=== PATIENT | female | born 1980 | race Caucasian/White ===

== ENCOUNTER 2017-07-11 05:47 | Inpatient (IN) ==
[2017-07-11] MEDS ORDERED: SODIUM CHLORIDE 0.9% 1,000 ML IV PRN ×2 (06:26→12:27)
[2017-07-11 07:46] LABS: % Iron Saturation 9.9 % (18-50); Osmolality,Calculated 280.3 MOS/KG (273-304); Potassium 3.2 MMOL/L (3.5-5.1)
[2017-07-11 07:49] LABS: Basophils % 0.7 % (0.0-0.8); Hematocrit 22.2 VOL% (35.7-47.0); Immature Granulocytes % 0.7 %; Immature Granulocytes Absolute 0.03 #; Lymphocytes # 0.7 10*3/uL (1.4-4.0); Lymphocytes % 16.8 % (21.3-54.2); Mean Corpuscular HGB Conc 25.2 GM/DL (32-36); Mean Corpuscular Hemoglobin 17 PG (27-34); Mean Corpuscular Volume 68.1 FL (87-102); Mean Platelet Volume 10.8 FL (9.6-12.0); Monocytes # 0.5 10*3/uL (0.11-0.8); Monocytes % 11.8 % (1.7-12.7); NRBC # 0.03 10*3/uL; Platelet Count 284 T/CUMM (130-400); Red Blood Count 3.26 MC/CUMM (3.8-5.5); Red Cell Distribution Width 23.8 % (9.3-17.3); White Blood Count 4.2 T/CUMM (4-12)
[2017-07-11 07:53] LABS: Hemoglobin 5.6 GM/DL (12.0-16.0)
[2017-07-11 08:02] LABS: Elliptocytes Few; Giant Platelets Few; Hypochromasia 1+; Microcytosis Slight; Platelet Estimate Adequate
[2017-07-11] MEDS ORDERED: LORazepam 1 MG TABLET PO PRN (12:29)
[2017-07-11] MEDS ORDERED: PARoxetine 20 MG TABLET PO SCH (21:00)
[2017-07-11] MEDS: DILTIAZEM CD 240 MG CAPSULE PO SCH (21:12)
[2017-07-11] MEDS: FLECAINIDE 50 MG TABLET PO SCH (21:12)
[2017-07-11] MEDS: MAGNESIUM CHLORIDE 64 MG TABLET PO SCH (21:12)
[2017-07-12 03:07] LABS: Basophils # 0.1 10*3/uL (0.0-0.2); Basophils % 1.1 % (0.0-0.8); Hematocrit 29.1 VOL% (35.7-47.0); Immature Granulocytes % 0.9 %; Immature Granulocytes Absolute 0.04 #; Mean Corpuscular HGB Conc 26.8 GM/DL (32-36); Red Cell Distribution Width 23.5 % (9.3-17.3)
[2017-07-12 03:29] LABS: Lymphocytes % 22.8 % (21.3-54.2); Mean Corpuscular Hemoglobin 20 PG (27-34); Mean Corpuscular Volume 72.9 FL (87-102); Mean Platelet Volume 10.8 FL (9.6-12.0); Monocytes # 0.7 10*3/uL (0.11-0.8); Monocytes % 14.8 % (1.7-12.7); NRBC # 0.03 10*3/uL; Neutrophils # 2.7 10*3/uL (1.4-7.4); Neutrophils % 60.4 % (38.7-73.9); Platelet Count 270 T/CUMM (130-400); Red Blood Count 3.99 MC/CUMM (3.8-5.5); White Blood Count 4.4 T/CUMM (4-12)
[2017-07-12 03:33] LABS: Hemoglobin 7.8 GM/DL (12.0-16.0)
[2017-07-12 04:01] LABS: Hypochromasia 3+
[2017-07-12 04:02] LABS: Anisocytosis 2+; Poikilocytosis 2+; Polychromasia 1+
[2017-07-12] MEDS ORDERED: CHOLECALCIFEROL 5,000 UNIT TABLET PO SCH (09:00)
[2017-07-12] MEDS ORDERED: ASCORBIC ACID 500 MG TABLET PO SCH (09:00)
[2017-07-12] MEDS ORDERED: ASPIRIN EC 81 MG TABLET PO SCH (09:00)
[2017-07-12] MEDS: DILTIAZEM CD 240 MG CAPSULE PO SCH (09:50)
[2017-07-12] MEDS: FLECAINIDE 50 MG TABLET PO SCH (09:51)
[2017-07-12] MEDS: MAGNESIUM CHLORIDE 64 MG TABLET PO SCH (09:51)
[2017-07-12 11:08] VITALS: BP 152/69
== END 2017-07-12 11:15 | disposition home or self-care (01) | DRG 812 ==
LOC: EDUNIT# → EDBD → N.ED 05:47 → N.EDINP 06:25 → N.5E 09:24
PROVIDERS: ADMIT Internal Medicine Geriatric Medicine; ATTEND Internal Medicine Geriatric Medicine

== ENCOUNTER 2018-11-20 23:33 | Inpatient (IN) ==
[2018-11-21] MEDS ORDERED: ONDANSETRON 4 MG/2 ML VIAL IV PRN (00:55)
[2018-11-21] MEDS ORDERED: HYDROmorphone 2 MG/1 ML VIAL IV STA (01:00)
[2018-11-21] MEDS: DEXTROSE 5% LACTATED RINGERS 1,000 ML IV SCH ×3 (01:15→18:16)
[2018-11-21] MEDS: HYDROmorphone 2 MG/1 ML VIAL IV PRN ×4 (05:18→20:46)
[2018-11-21 06:40] LABS: Basophils % 0.3 % (0.0-0.8); Hematocrit 30.2 VOL% (35.7-47.0); Immature Granulocytes % 0.4 %; Immature Granulocytes Absolute 0.03 #; Lymphocytes # 0.8 10*3/uL (1.4-4.0); Lymphocytes % 10.2 % (21.3-54.2); Mean Corpuscular HGB Conc 29.8 GM/DL (32-36); Mean Corpuscular Volume 81.6 FL (87-102); Mean Platelet Volume 10.8 FL (9.6-12.0); Monocytes % 6.5 % (1.7-12.7); Neutrophils % 82.6 % (38.7-73.9); Platelet Count 228 T/CUMM (130-400); Red Cell Distribution Width 16.4 % (9.3-17.3); White Blood Count 7.6 T/CUMM (4-12)
[2018-11-21] MEDS ORDERED: CLINDAMYCIN INJ 900 MG in PREMIX 1 EACH IV ONE (06:41)
[2018-11-21] MEDS ORDERED: PROMETHAZINE INJ 12.5 MG in SODIUM CHLORIDE 0.9% 50 ML IV PRN (06:41)
[2018-11-21] MEDS: FLECAINIDE 50 MG TABLET PO SCH ×2 (06:50→20:37)
[2018-11-21] MEDS: DILTIAZEM CD 240 MG CAPSULE PO SCH ×2 (06:51→20:38)
[2018-11-21] MEDS ORDERED: GENTAMICIN INJ 120 MG in PREMIX 1 EACH IV ONE (07:00)
[2018-11-21 07:08] LABS: Alanine Aminotransferase 58 U/L (13-56); Albumin 2.9 G/DL (3.4-5.0); Alkaline Phosphatase 66 U/L (45-117); Aspartate Amino Transferase 59 U/L (0-37); Bilirubin,Total < 0.39 MG/DL (0.2-1.0); Blood Urea Nitrogen 17 MG/DL (7-18); Calcium 8.3 MG/DL (8.5-10.1); Glucose 197 MG/DL (74-106); Osmolality,Calculated 281.7 MOS/KG (273-304); Total Protein 7.5 G/DL (6.4-8.3)
[2018-11-21] MEDS ORDERED: NON-FORMULARY MEDICATION (Omeprazole 20 MG) PO SCH (09:00)
[2018-11-21] MEDS ORDERED: SUGAMMADEX 200 MG/2 ML VIAL IV ONE (09:28)
[2018-11-21] MEDS ORDERED: MIDAZOLAM 2 MG/2 ML VIAL ONE (09:55)
[2018-11-21] MEDS ORDERED: fentaNYL 100 MCG/2 ML VIAL ONE (09:55)
[2018-11-21] MEDS ORDERED: PROPOFOL 200 MG/20 ML VIAL IV ONE (09:55)
[2018-11-21] MEDS ORDERED: SEVOFLURANE 1 UNIT/15 MINUTE INH ONE (09:55)
[2018-11-21] MEDS ORDERED: ONDANSETRON 4 MG/2 ML VIAL ONE (09:56)
[2018-11-21] MEDS ORDERED: KETOROLAC 30 MG/1 ML VIAL ONE (09:56)
[2018-11-21] MEDS ORDERED: ROCURONIUM 100 MG/10 ML VIAL IV ONE (09:56)
[2018-11-21] MEDS ORDERED: ESMOLOL 100 MG/10 ML VIAL IV ONE (09:56)
[2018-11-21] MEDS ORDERED: PHENYLEPHRINE 1 MG/10 ML SYRINGE IV ONE (09:56)
[2018-11-21] MEDS ORDERED: SUCCINYLCHOLINE 200 MG/10 ML VIAL ONE (09:56)
[2018-11-21] MEDS ORDERED: LACTATED RINGERS 1,000 ML IV ONE (09:56)
[2018-11-21] MEDS: MAGNESIUM CHLORIDE 64 MG TABLET PO SCH ×2 (10:41→20:38)
[2018-11-21] MEDS: PANTOPRAZOLE 40 MG VIAL IV SCH (10:42)
[2018-11-21] MEDS ORDERED: GENTAMICIN INJ 360 MG in SODIUM CHLORIDE 0.9% 100 ML IV ONE (11:00)
[2018-11-21] MEDS: LORazepam 0.5 MG TABLET PO PRN (18:13)
[2018-11-21 18:45] LABS: Apearance,Urine Slightly Hazy (Clear); Bilirubin,Urine Negative (Negative); Blood, Urine Large mg/dL (Negative); Glucose,Urine (UA) Negative (Negative); Hyaline Casts,Urine 12 /LPF (0-3); Ketones,Urine Negative (Negative); Mucus,Urine Occasional /LPF (Occasional); Nitrite,Urine Negative (Negative); Protein,Urine 100 MG/DL; RBC,Urine 1441 /HPF (0-4); Squamous Epithelial Cell,Urine Occasional /HPF (0-10); Urine Color Yellow (Yellow); Urine Specific Gravity 1.019 (1.001-1.035); Urine Urobilinogen < 2.0 EU/DL (0.2-1.0); WBC,Urine 47 /HPF (0-6)
[2018-11-21] MEDS: PARoxetine 20 MG TABLET PO SCH (20:38)
[2018-11-21] MEDS: ASCORBIC ACID 500 MG TABLET PO SCH (20:38)
[2018-11-22] MEDS: HYDROmorphone 2 MG/1 ML VIAL IV PRN ×2 (00:40→04:19)
[2018-11-22] MEDS: DEXTROSE 5% LACTATED RINGERS 1,000 ML IV SCH ×2 (00:41→10:12)
[2018-11-22 05:18] LABS: Basophils % 0.2 % (0.0-0.8); Hematocrit 23.6 VOL% (35.7-47.0); Immature Granulocytes Absolute 0.13 #; Lymphocytes # 1.2 10*3/uL (1.4-4.0); Lymphocytes % 9.2 % (21.3-54.2); Mean Corpuscular HGB Conc 29.7 GM/DL (32-36); Mean Corpuscular Volume 83.7 FL (87-102); Mean Platelet Volume 11.5 FL (9.6-12.0); Monocytes % 9.4 % (1.7-12.7); Neutrophils % 80.2 % (38.7-73.9); Platelet Count 222 T/CUMM (130-400); Red Blood Count 2.82 MC/CUMM (3.8-5.5); Red Cell Distribution Width 16.8 % (9.3-17.3); White Blood Count 13.4 T/CUMM (4-12)
[2018-11-22 05:40] LABS: Calcium 8.8 MG/DL (8.5-10.1); Osmolality,Calculated 287.4 MOS/KG (273-304)
[2018-11-22 05:46] LABS: Risk Ratio 2.68; VLDL CHOLESTEROL 11.6 MG/DL
[2018-11-22] MEDS ORDERED: SODIUM CHLORIDE 0.9% 1,000 ML IV PRN (07:31)
[2018-11-22] MEDS ORDERED: cefTRIAXone 2,000 MG in SYRINGE 1 EACH IV SCH (09:00)
[2018-11-22] MEDS: DILTIAZEM CD 240 MG CAPSULE PO SCH ×2 (10:10→21:43)
[2018-11-22] MEDS: FLECAINIDE 50 MG TABLET PO SCH ×2 (10:11→21:44)
[2018-11-22] MEDS: ASCORBIC ACID 500 MG TABLET PO SCH ×2 (10:11→21:44)
[2018-11-22] MEDS: MAGNESIUM CHLORIDE 64 MG TABLET PO SCH ×2 (10:11→21:45)
[2018-11-22] MEDS: PANTOPRAZOLE 40 MG VIAL IV SCH (10:12)
[2018-11-22] MEDS: LORazepam 0.5 MG TABLET PO PRN (10:15)
[2018-11-22] MEDS ORDERED: PROMETHAZINE 25 MG/1 ML VIAL IM PRN (10:51)
[2018-11-22] MEDS ORDERED: GENTAMICIN INJ 480 MG in SODIUM CHLORIDE 0.9% 100 ML IV SCH (11:00)
[2018-11-22] MEDS: oxyCODONE/ACETAMINOPHEN 5-325 MG TABLET PO PRN ×3 (11:16→21:44)
[2018-11-22 19:17] LABS: Hematocrit 27.4 VOL% (35.7-47.0); Hemoglobin 8.2 GM/DL (12.0-16.0)
[2018-11-22] MEDS: PARoxetine 20 MG TABLET PO SCH (21:43)
[2018-11-23] MEDS: oxyCODONE/ACETAMINOPHEN 5-325 MG TABLET PO PRN ×2 (01:26→08:35)
[2018-11-23 04:57] LABS: Basophils # 0.1 10*3/uL (0.0-0.2); Basophils % 0.6 % (0.0-0.8); Hematocrit 27.6 VOL% (35.7-47.0); Hemoglobin 8.1 GM/DL (12.0-16.0); Immature Granulocytes % 1.9 %; Immature Granulocytes Absolute 0.22 #; Lymphocytes # 2.3 10*3/uL (1.4-4.0); Lymphocytes % 19.2 % (21.3-54.2); Mean Corpuscular HGB Conc 29.3 GM/DL (32-36); Mean Corpuscular Volume 85.7 FL (87-102); Mean Platelet Volume 11.1 FL (9.6-12.0); Monocytes % 12.3 % (1.7-12.7); NRBC # 0.02 10*3/uL; Platelet Count 219 T/CUMM (130-400); Red Blood Count 3.22 MC/CUMM (3.8-5.5); Red Cell Distribution Width 16.6 % (9.3-17.3); White Blood Count 11.8 T/CUMM (4-12)
[2018-11-23 05:16] LABS: Calcium 8.1 MG/DL (8.5-10.1); Osmolality,Calculated 285.3 MOS/KG (273-304)
[2018-11-23] MEDS: FLECAINIDE 50 MG TABLET PO SCH (08:27)
[2018-11-23] MEDS: PANTOPRAZOLE 40 MG VIAL IV SCH (08:27)
[2018-11-23] MEDS: MAGNESIUM CHLORIDE 64 MG TABLET PO SCH (08:27)
[2018-11-23] MEDS: DILTIAZEM CD 240 MG CAPSULE PO SCH (08:27)
[2018-11-23] MEDS: ASCORBIC ACID 500 MG TABLET PO SCH (08:27)
[2018-11-23] MEDS: LORazepam 0.5 MG TABLET PO PRN (08:29)
[2018-11-23 10:49] VITALS: BP 134/74
== END 2018-11-23 15:08 | disposition home or self-care (01) | DRG 465 ==
LOC: EDBD → EDUNIT# → N.ED 23:33 → N.EDINP 23:33 → N.5E 11-21 01:09
PROVIDERS: ADMIT Surgery; ATTEND Surgery

== ENCOUNTER 2019-07-09 17:05 | Inpatient (IN) ==
[2019-07-09] MEDS: dilTIAZem Drip 125 MG/125 ML PREMIX IV SCH (18:40)
[2019-07-09] MEDS ORDERED: ACETAMINOPHEN 325 MG TABLET PO PRN (19:41)
[2019-07-09] MEDS ORDERED: ONDANSETRON 4 MG/2 ML VIAL IV PRN (19:41)
[2019-07-09 20:42] LABS: Calcium 8.4 MG/DL (8.5-10.1); Osmolality,Calculated 282.1 MOS/KG (273-304)
[2019-07-09] MEDS ORDERED: ENOXAPARIN 40 MG/0.4 ML SYRINGE SUBCUT SCH (21:00)
[2019-07-09] MEDS ORDERED: LORazepam 1 MG TABLET PO PRN (21:37)
[2019-07-10] MEDS: dilTIAZem Drip 125 MG/125 ML PREMIX IV SCH ×2 (03:10→05:11)
[2019-07-10 06:01] LABS: Basophils % 0.7 % (0.0-0.8); Hematocrit 37.7 VOL% (35.7-47.0); Hemoglobin 11.6 GM/DL (12.0-16.0); Lymphocytes # 0.9 10*3/uL (1.4-4.0); Mean Corpuscular HGB Conc 30.8 GM/DL (32-36); Mean Corpuscular Volume 85.9 FL (87-102); Mean Platelet Volume 11.6 FL (9.6-12.0); Monocytes % 14.5 % (1.7-12.7); Neutrophils % 55.8 % (38.7-73.9); Platelet Count 185 T/CUMM (130-400); Red Blood Count 4.39 MC/CUMM (3.8-5.5); Red Cell Distribution Width 15.3 % (9.3-17.3)
[2019-07-10 06:19] LABS: Calcium 8.3 MG/DL (8.5-10.1); Osmolality,Calculated 278.4 MOS/KG (273-304)
[2019-07-10] MEDS ORDERED: POTASSIUM CHLORIDE 20 MEQ TABLET PO ONE ×2 (10:23→13:04)
[2019-07-10] MEDS ORDERED: ASCORBIC ACID 500 MG TABLET PO SCH (10:30)
[2019-07-10] MEDS ORDERED: MAGNESIUM CHLORIDE 64 MG TABLET PO SCH (10:30)
[2019-07-10] MEDS ORDERED: POTASSIUM CHLORIDE 20 MEQ TABLET PO SCH (10:30)
[2019-07-10] MEDS ORDERED: FLECAINIDE 50 MG TABLET PO SCH (10:30)
[2019-07-10] MEDS ORDERED: PANTOPRAZOLE 40 MG TABLET PO SCH (10:30)
[2019-07-10] MEDS ORDERED: DILTIAZEM CD 240 MG CAPSULE PO SCH (10:30)
[2019-07-10 12:10] VITALS: BP 127/76
[2019-07-10] MEDS ORDERED: PARoxetine 20 MG TABLET PO SCH (21:00)
== END 2019-07-10 14:39 | disposition home or self-care (01) | DRG 201 ==
LOC: N.TELEN 18:39 → INTOOBSV 18:39
PROVIDERS: ADMIT Internal Medicine; ATTEND Internal Medicine

== ENCOUNTER 2021-02-23 16:04 | Inpatient (IN) ==
[2021-02-23] MEDS ORDERED: DILTIAZEM 50 MG/10 ML VIAL IV STA ×3 (17:12→20:23)
[2021-02-23] MEDS ORDERED: DILTIAZEM 25 MG/5 ML VIAL IV ONE (17:47)
[2021-02-23 19:29] LABS: Basophils % 1.2 % (0.0-0.8); Hematocrit 43.6 VOL% (35.7-47.0); Hemoglobin 13.5 GM/DL (12.0-16.0); Immature Granulocytes % 0.3 %; Immature Granulocytes Absolute 0.01 #; Lymphocytes # 0.9 10*3/uL (1.4-4.0); Lymphocytes % 26.5 % (21.3-54.2); Mean Corpuscular Volume 86.2 FL (87-102); Mean Platelet Volume 11.1 FL (9.6-12.0); Monocytes % 16.7 % (1.7-12.7); Neutrophils % 55.3 % (38.7-73.9); Platelet Count 199 T/CUMM (130-400); Red Blood Count 5.06 MC/CUMM (3.8-5.5); Red Cell Distribution Width 15.9 % (9.3-17.3); White Blood Count 3.2 T/CUMM (4-12)
[2021-02-23 19:51] LABS: Alanine Aminotransferase 83 U/L (13-56); Albumin 4.1 G/DL (3.4-5.0); Alkaline Phosphatase 63 U/L (45-117); Aspartate Amino Transferase 104 U/L (0-37); Bilirubin,Total < 0.39 MG/DL (0.20-1.00); Blood Urea Nitrogen 11 MG/DL (7-18); Calcium 8.9 MG/DL (8.5-10.1); Carbon Dioxide 22 MMOL/L (21-32); Estimated Glom Filtration Rate 100 ML/MIN; Glucose 101 MG/DL (74-106); Osmolality,Calculated 275.5 MOS/KG (273-304); Potassium 3.8 MMOL/L (3.5-5.1); Sodium 139 MMOL/L (136-145); Total Protein 8.1 G/DL (6.4-8.2)
[2021-02-23] MEDS ORDERED: ONDANSETRON 4 MG/2 ML VIAL IV PRN (20:50)
[2021-02-23] MEDS ORDERED: ACETAMINOPHEN 325 MG TABLET PO PRN (20:50)
[2021-02-23] MEDS ORDERED: DILTIAZEM INJ 100 MG in SODIUM CHLORIDE 0.9% 100 ML IV SCH (21:00)
[2021-02-23] MEDS ORDERED: DILTIAZEM 100 MG VIAL.ADD IV ONE (21:12)
[2021-02-23] MEDS ORDERED: LORazepam 1 MG TABLET PO ONE (21:35)
[2021-02-23 21:50] LABS: Band Neutrophils 1 % (0-10); Lymphocytes 25 % (20-55); Platelet Estimate Normal; Segmented Neutrophils 66 % (50-85); Total Cells Counted 100
[2021-02-23] MEDS ORDERED: APIXABAN 5 MG TABLET PO ONE (22:19)
[2021-02-23] MEDS ORDERED: LORazepam 1 MG TABLET PO PRN (22:59)
[2021-02-23] MEDS ORDERED: HYDROmorphone 2 MG TABLET PO PRN (22:59)
[2021-02-23] MEDS ORDERED: PARoxetine 20 MG TABLET PO SCH (23:00)
[2021-02-23] MEDS ORDERED: ONDANSETRON ODT 4 MG TABLET PO PRN (23:05)
[2021-02-24 01:16] LABS: Basophils % 1.4 % (0.0-0.8); Hematocrit 39.8 VOL% (35.7-47.0); Hemoglobin 12.4 GM/DL (12.0-16.0); Immature Granulocytes % 0.4 %; Immature Granulocytes Absolute 0.01 #; Lymphocytes # 0.8 10*3/uL (1.4-4.0); Lymphocytes % 29.5 % (21.3-54.2); Mean Corpuscular HGB Conc 31.2 GM/DL (32-36); Mean Corpuscular Volume 86.3 FL (87-102); Mean Platelet Volume 11.1 FL (9.6-12.0); Monocytes % 14.9 % (1.7-12.7); Neutrophils % 53.8 % (38.7-73.9); Platelet Count 191 T/CUMM (130-400); Red Blood Count 4.61 MC/CUMM (3.8-5.5); Red Cell Distribution Width 15.9 % (9.3-17.3); White Blood Count 2.8 T/CUMM (4-12)
[2021-02-24 01:43] LABS: Albumin 3.3 G/DL (3.4-5.0); Bilirubin,Total 0.4 MG/DL (0.20-1.00); Calcium 8.1 MG/DL (8.5-10.1); Osmolality,Calculated 280.3 MOS/KG (273-304); Potassium 3.4 MMOL/L (3.5-5.1); Risk Ratio 3.3; Total Protein 6.9 G/DL (6.4-8.2)
[2021-02-24] MEDS ORDERED: CHOLECALCIFEROL 1,000 UNIT TABLET PO SCH (09:00)
[2021-02-24] MEDS ORDERED: MAGNESIUM CHLORIDE 64 MG TABLET PO SCH (09:00)
[2021-02-24] MEDS ORDERED: DILTIAZEM CD 240 MG CAPSULE PO SCH (09:00)
[2021-02-24] MEDS ORDERED: PANTOPRAZOLE 40 MG TABLET PO SCH (09:00)
[2021-02-24] MEDS ORDERED: NON-FORMULARY MEDICATION (Omeprazole 20 MG capsule,delayed release(DR/EC)) PO SCH (09:00)
[2021-02-24] MEDS ORDERED: FLECAINIDE 50 MG TABLET PO SCH (09:00)
[2021-02-24] MEDS ORDERED: ASCORBIC ACID 500 MG TABLET PO SCH (09:00)
[2021-02-24] MEDS ORDERED: FERROUS SULFATE 325 MG TABLET PO SCH (09:00)
[2021-02-24] MEDS ORDERED: APIXABAN 5 MG TABLET PO SCH (09:00)
[2021-02-24 12:22] VITALS: BP 133/64
[2021-02-24] MEDS ORDERED: SPIRONOLACTONE 25 MG TABLET PO SCH (12:30)
[2021-02-24] MEDS ORDERED: POTASSIUM CHLORIDE 20 MEQ TABLET PO SCH (21:00)
== END 2021-02-24 15:31 | disposition home or self-care (01) | DRG 201 ==
LOC: N.ED 16:04 → N.EDINP 20:05 → N.TELEN 21:45
PROVIDERS: ADMIT Hospitalist; ATTEND Hospitalist